=== PATIENT | female | born 1990 | race Caucasian/White ===

== ENCOUNTER 2019-03-12 17:10 | Inpatient (IN) | payer MEDICAID ==
[~2019-03-12] VITALS: Ht 175.3 cm; Wt 60.3 kg
[2019-03-12] MEDS ORDERED: TRAZODONE 50MG TABLET PO PRN (17:30)
[2019-03-12] MEDS ORDERED: BISACODYL 10 MG SUPP PR PRN (17:30)
[2019-03-12] MEDS: PLEASE ENTER HEIGHT AND WEIGHT MC SCH (19:00)
[2019-03-12 19:09] VITALS: BP 119/78
[2019-03-12 21:14] VITALS: BP 108/73
[2019-03-13] MEDS: PLEASE ENTER HEIGHT AND WEIGHT MC SCH ×2 (02:46→11:59)
[2019-03-13] MEDS ORDERED: FLU VACC QS2019-20 36MOS UP/PF 0.5 ML IM-VACC ONE (03:00)
[2019-03-13 06:23] LABS: BASOPHILS # (AUTO) 0.06 x10^3/uL (0-0.1); BASOPHILS % (AUTO) 1 % (0-1); EOSINOPHILS % (AUTO) 1 % (1-7); LYMPHOCYTES # (AUTO) 3.39 x10^3/uL (1-3.4); LYMPHOCYTES % (AUTO) 46 % (22-44); MD NO; MEAN CORPUSCULAR HEMOGLOBIN 30.1 pg (27.0-34.8); MEAN CORPUSCULAR HGB CONC 33.6 g/dL (32.4-35.8); MEAN CORPUSCULAR VOLUME 89.5 fL (80-100); MEAN PLATELET VOLUME 9.5 fL (7.4-10.4); MONOCYTES # (AUTO) 0.64 x10^3/uL (0.2-0.8); MONOCYTES % (AUTO) 9 % (2-9); NEUTROPHILS # (AUTO) 3.23 x10^3/uL (1.8-6.8); NEUTROPHILS % (AUTO) 44 % (42-75); PLATELET COUNT 222 x10^3/uL (130-400); RED BLOOD COUNT 4.43 x10^6/uL (3.82-5.3); RED CELL DISTRIBUTION WIDTH 12.4 % (9.6-15.2)
[2019-03-13 06:36] LABS: ALBUMIN 3.4 g/dL (3.4-5.0); ANION GAP 11 mmol/L (5-15); CALCIUM 8.4 mg/dL (8.5-10.1); CHLORIDE 105 mmol/L (98-107)
[2019-03-13 06:39] LABS: ALANINE AMINOTRANSFERASE 24 U/L (12-78); CHOLESTEROL, TOTAL 152 mg/dL (140-239); CREATININE 0.77 mg/dL (0.55-1.02); TRIGLYCERIDES 71 mg/dL (50-200); VLDL CHOLESTEROL 14 mg/dL (0-25)
[2019-03-13 07:00] LABS: ALKALINE PHOSPHATASE 62 U/L (45-117); BILIRUBIN,TOTAL 0.8 mg/dL (0.2-1.0); CHOL/HDL RATIO 3.2; FREE T4 (FREE THYROXINE) 1.26 ng/dL (0.76-1.46); HDL CHOL % 32 % (28-40); HDL CHOLESTEROL (DIRECT) 48 mg/dL (40-60); LDL CHOLESTEROL,CALCULATED 90 mg/dL (54-169); LDL/HDL RATIO 1.9 (0.5-3.0); TOTAL PROTEIN 6.6 g/dL (6.4-8.2)
[2019-03-13 07:22] VITALS: BP 116/73
[2019-03-13 07:42] LABS: HCT (SEDRATE) 39.6 % (34.6-47.8)
[2019-03-13] MEDS: CITALOPRAM 20 MG TABLET PO SCH (08:50)
[2019-03-13] MEDS: INSULIN LISPRO 100 UNITS/ML, PEN SQ-INSULIN SCH ×4 (08:52→20:11)
[2019-03-13] MEDS: ONDANSETRON ODT 4 MG PO PRN ×2 (11:47→16:58)
[2019-03-13 17:07] LABS: HEMOGLOBIN A1C 12.3 % (4.2-6.3)
[2019-03-13] MEDS ORDERED: ONDANSETRON 2MG/ML, 2ML IVPush PRN (17:30)
[2019-03-13] MEDS ORDERED: SODIUM CHLORIDE 0.9% 1,000ML IVBOLUS ONE ×2 (17:30→22:00)
[2019-03-13 17:58] LABS: ANION GAP 17 mmol/L (5-15); CALCIUM 9.5 mg/dL (8.5-10.1); CHLORIDE 103 mmol/L (98-107)
[2019-03-13] MEDS: SODIUM CHLORIDE 0.9% 1,000 ML IV SCH (18:28)
[2019-03-13 19:15] VITALS: BP 120/77
[2019-03-13] MEDS: INSULIN GLARGINE 100 UNITS/ML, PEN SQ-INSULIN SCH (20:26)
[2019-03-13] MEDS: CARBAMAZEPINE 200 MG TABLET PO SCH (20:27)
[2019-03-13] MEDS ORDERED: MAGNESIUM SULFATE 1 GM in SODIUM CHLORIDE 0.9% 50 ML IV ONE (21:30)
[2019-03-13] MEDS: TRAZODONE 50MG TABLET PO SCH (22:04)
[2019-03-13 22:11] VITALS: BP 94/51
[2019-03-13 22:16] LABS: MICROSCOPIC AUTO
[2019-03-13 22:21] LABS: CULTURE INDICATED? YES
[2019-03-14 00:18] LABS: ALBUMIN 3.2 g/dL (3.4-5.0); ANION GAP 11 mmol/L (5-15); CALCIUM 8.1 mg/dL (8.5-10.1); CHLORIDE 106 mmol/L (98-107); CREATININE 0.84 mg/dL (0.55-1.02)
[2019-03-14 04:51] LABS: BASOPHILS # (AUTO) 0.03 x10^3/uL (0-0.1); BASOPHILS % (AUTO) 0 % (0-1); EOSINOPHILS # (AUTO) 0.04 x10^3/uL (0-0.4); EOSINOPHILS % (AUTO) 0 % (1-7); LYMPHOCYTES # (AUTO) 4.01 x10^3/uL (1-3.4); LYMPHOCYTES % (AUTO) 35 % (22-44); MD NO; MEAN CORPUSCULAR HEMOGLOBIN 30.1 pg (27.0-34.8); MEAN CORPUSCULAR HGB CONC 33.2 g/dL (32.4-35.8); MEAN CORPUSCULAR VOLUME 90.9 fL (80-100); MEAN PLATELET VOLUME 9.4 fL (7.4-10.4); MONOCYTES # (AUTO) 0.83 x10^3/uL (0.2-0.8); MONOCYTES % (AUTO) 7 % (2-9); NEUTROPHILS # (AUTO) 6.57 x10^3/uL (1.8-6.8); NEUTROPHILS % (AUTO) 57 % (42-75); PLATELET COUNT 222 x10^3/uL (130-400); RED BLOOD COUNT 3.89 x10^6/uL (3.82-5.3); RED CELL DISTRIBUTION WIDTH 12.4 % (9.6-15.2)
[2019-03-14] MEDS: SODIUM CHLORIDE 0.9% 1,000 ML IV SCH ×3 (04:55→18:45)
[2019-03-14 05:05] LABS: ANION GAP 9 mmol/L (5-15); CALCIUM 7.7 mg/dL (8.5-10.1); CHLORIDE 108 mmol/L (98-107)
[2019-03-14 05:08] LABS: ALANINE AMINOTRANSFERASE 24 U/L (12-78); ALKALINE PHOSPHATASE 55 U/L (45-117); BILIRUBIN,TOTAL 0.9 mg/dL (0.2-1.0); CREATININE 0.72 mg/dL (0.55-1.02); TOTAL PROTEIN 5.7 g/dL (6.4-8.2)
[2019-03-14] MEDS: INSULIN LISPRO 100 UNITS/ML, PEN SQ-INSULIN SCH ×4 (07:00→20:34)
[2019-03-14 07:13] VITALS: BP 97/54
[2019-03-14] MEDS ORDERED: PANTOPRAZOLE 40 MG IV IVPush SCH (07:30)
[2019-03-14] MEDS: CITALOPRAM 20 MG TABLET PO SCH (09:02)
[2019-03-14 12:17] LABS: ANION GAP 9 mmol/L (5-15); CALCIUM 8.2 mg/dL (8.5-10.1); CHLORIDE 109 mmol/L (98-107)
[2019-03-14 19:45] VITALS: BP 99/60
[2019-03-14] MEDS: CARBAMAZEPINE 200 MG TABLET PO SCH (20:30)
[2019-03-14] MEDS: TRAZODONE 50MG TABLET PO SCH (20:30)
[2019-03-14] MEDS: INSULIN GLARGINE 100 UNITS/ML, PEN SQ-INSULIN SCH (20:34)
[2019-03-14] MEDS ORDERED: DEXTROSE 4 GM TAB.CHEW PO PRN (23:30)
[2019-03-14] MEDS ORDERED: GLUCAGON 1 MG IM PRN (23:30)
[2019-03-15] MEDS: SODIUM CHLORIDE 0.9% 1,000 ML IV SCH (01:52)
[2019-03-15] MEDS: PANTOPROZOLE 40MG TABLET PO SCH (06:09)
[2019-03-15 06:25] LABS: CULTURE INDICATED? YES; MICROSCOPIC AUTO
[2019-03-15 07:09] VITALS: BP 119/77
[2019-03-15] MEDS: INSULIN LISPRO 100 UNITS/ML, PEN SQ-INSULIN SCH ×5 (07:57→20:20)
[2019-03-15] MEDS ORDERED: ALUMINUM/MAG/SIMETHICONE 30 ML UDC ONE (08:11)
[2019-03-15] MEDS: ALUMINUM/MAG/SIMETHICONE 30 ML UDC PO PRN (08:19)
[2019-03-15] MEDS: ACETAMINOPHEN 325 MG TABLET PO PRN ×2 (08:51→12:58)
[2019-03-15] MEDS: CITALOPRAM 20 MG TABLET PO SCH (08:53)
[2019-03-15 09:09] LABS: ALANINE AMINOTRANSFERASE 29 U/L (12-78); ALBUMIN 3.5 g/dL (3.4-5.0); ANION GAP 6 mmol/L (5-15); CALCIUM 8.3 mg/dL (8.5-10.1); CHLORIDE 108 mmol/L (98-107); CREATININE 0.68 mg/dL (0.55-1.02)
[2019-03-15 09:11] LABS: ALKALINE PHOSPHATASE 63 U/L (45-117); BILIRUBIN,TOTAL 0.2 mg/dL (0.2-1.0); TOTAL PROTEIN 6.8 g/dL (6.4-8.2)
[2019-03-15] MEDS: ESCITALOPRAM 10MG TABLET PO SCH (15:20)
[2019-03-15] MEDS: IBUPROFEN 200 MG TABLET PO PRN ×2 (15:40→20:22)
[2019-03-15] MEDS ORDERED: SODIUM CHLORIDE 0.9% 1,000 ML IV SCH (19:00)
[2019-03-15 19:56] VITALS: BP 129/89
[2019-03-15] MEDS: INSULIN GLARGINE 100 UNITS/ML, PEN SQ-INSULIN SCH (20:05)
[2019-03-15] MEDS: CARBAMAZEPINE 200 MG TABLET PO SCH (20:06)
[2019-03-15] MEDS: TRAZODONE 50MG TABLET PO SCH (20:06)
[2019-03-16] MEDS: PANTOPROZOLE 40MG TABLET PO SCH (06:00)
[2019-03-16 07:46] VITALS: BP 132/88
[2019-03-16] MEDS: INSULIN LISPRO 100 UNITS/ML, PEN SQ-INSULIN SCH ×5 (08:05→21:00)
[2019-03-16] MEDS: IBUPROFEN 200 MG TABLET PO PRN ×3 (08:31→20:46)
[2019-03-16] MEDS: ESCITALOPRAM 10MG TABLET PO SCH (08:31)
[2019-03-16] MEDS ORDERED: ESCITALOPRAM 10MG TABLET PO SCH (09:00)
[2019-03-16] MEDS: POLYETHYLENE GLYCOL 17 GM PACKET PO PRN (10:10)
[2019-03-16] MEDS: ACETAMINOPHEN 325 MG TABLET PO PRN ×2 (12:43→17:52)
[2019-03-16] MEDS: ONDANSETRON ODT 4 MG PO PRN (17:59)
[2019-03-16] MEDS: DOCUSATE 100 MG CAPSULE PO PRN (18:02)
[2019-03-16] MEDS: ALUMINUM/MAG/SIMETHICONE 30 ML UDC PO PRN (18:42)
[2019-03-16 19:15] VITALS: BP 145/92
[2019-03-16] MEDS: CARBAMAZEPINE 200 MG TABLET PO SCH (20:46)
[2019-03-16] MEDS: TRAZODONE 50MG TABLET PO SCH (20:48)
[2019-03-16] MEDS: INSULIN GLARGINE 100 UNITS/ML, PEN SQ-INSULIN SCH (20:51)
[2019-03-17] MEDS: PANTOPROZOLE 40MG TABLET PO SCH (05:21)
[2019-03-17 07:25] VITALS: BP 131/81
[2019-03-17] MEDS: ESCITALOPRAM 10MG TABLET PO SCH (08:23)
[2019-03-17] MEDS: INSULIN LISPRO 100 UNITS/ML, PEN SQ-INSULIN SCH ×5 (08:29→20:18)
[2019-03-17] MEDS: POLYETHYLENE GLYCOL 17 GM PACKET PO PRN (08:30)
[2019-03-17] MEDS: ONDANSETRON ODT 4 MG PO PRN (08:31)
[2019-03-17] MEDS: DOCUSATE 100 MG CAPSULE PO PRN ×2 (08:31→20:55)
[2019-03-17] MEDS: ACETAMINOPHEN 325 MG TABLET PO PRN ×2 (10:30→20:16)
[2019-03-17] MEDS: IBUPROFEN 200 MG TABLET PO PRN (16:26)
[2019-03-17 19:34] VITALS: BP 143/91
[2019-03-17] MEDS: CARBAMAZEPINE 200 MG TABLET PO SCH (20:16)
[2019-03-17] MEDS: TRAZODONE 50MG TABLET PO SCH (20:16)
[2019-03-17] MEDS: INSULIN GLARGINE 100 UNITS/ML, PEN SQ-INSULIN SCH (20:18)
[2019-03-18] MEDS: PANTOPROZOLE 40MG TABLET PO SCH (06:07)
[2019-03-18 07:11] VITALS: BP 120/78
[2019-03-18] MEDS: ESCITALOPRAM 10MG TABLET PO SCH (09:02)
[2019-03-18] MEDS: IBUPROFEN 200 MG TABLET PO PRN ×3 (09:02→20:26)
[2019-03-18] MEDS: INSULIN LISPRO 100 UNITS/ML, PEN SQ-INSULIN SCH ×7 (09:09→22:20)
[2019-03-18] MEDS: ALUMINUM/MAG/SIMETHICONE 30 ML UDC PO PRN (16:54)
[2019-03-18] MEDS: ONDANSETRON ODT 4 MG PO PRN (18:34)
[2019-03-18 19:42] VITALS: BP 141/92
[2019-03-18] MEDS: TRAZODONE 50MG TABLET PO SCH (20:21)
[2019-03-18] MEDS: CARBAMAZEPINE 200 MG TABLET PO SCH (20:21)
[2019-03-18] MEDS: INSULIN GLARGINE 100 UNITS/ML, PEN SQ-INSULIN SCH (22:21)
[2019-03-19] MEDS: PANTOPROZOLE 40MG TABLET PO SCH (05:56)
[2019-03-19] MEDS: INSULIN LISPRO 100 UNITS/ML, PEN SQ-INSULIN SCH ×3 (06:12→10:31)
[2019-03-19 07:20] VITALS: BP 96/60
[2019-03-19] MEDS: ONDANSETRON ODT 4 MG PO PRN (08:51)
[2019-03-19] MEDS: IBUPROFEN 200 MG TABLET PO PRN (08:51)
[2019-03-19] MEDS ORDERED: ESCITALOPRAM 10MG TABLET PO SCH (09:00)
[2019-03-19] MEDS ORDERED: INSULIN GLARGINE 100 UNITS/ML, PEN SQ-INSULIN SCH ×3 (12:30→21:00)
[2019-03-19] MEDS ORDERED: INSULIN LISPRO 100 UNITS/ML, PEN SQ-INSULIN SCH (13:00)
[2019-03-19 15:41] VITALS: BP 123/81
[2019-03-19] MEDS ORDERED: ESCI10TA PO (15:53)
[2019-03-19] MEDS ORDERED: INSU100I13 SQ-INSULIN ×2 (15:53)
[2019-03-19] MEDS ORDERED: PANT40TA5 PO (15:53)
[2019-03-19] MEDS ORDERED: TRAZ50TA66 PO (15:53)
[2019-03-19] MEDS ORDERED: HYDR-826 PO (15:53)
[2019-03-19 15:55] VITALS: BP 127/87
[2019-03-19] MEDS ORDERED: GUAIFENESIN/DM 200-20MG, 10ML UDC PO PRN (16:00)
[2019-03-19] MEDS ORDERED: ONDANSETRON ODT 4 MG PO PRN (16:00)
[2019-03-19] MEDS ORDERED: ONDANSETRON 2MG/ML, 2ML IVPush PRN (16:00)
[2019-03-19] MEDS ORDERED: ACETAMINOPHEN 325 MG TABLET PO PRN (16:00)
[2019-03-19] MEDS ORDERED: POLYETHYLENE GLYCOL 17 GM PACKET PO PRN (16:00)
[2019-03-19] MEDS ORDERED: BUTALB/APAP/CAFFEINE 50MG/325MG/40MG PO PRN (16:00)
[2019-03-19] MEDS ORDERED: IBUPROFEN 600 MG TABLET PO PRN (16:00)
[2019-03-19] MEDS ORDERED: NICOTINE 21 MG/24 HR PATCH.TD24 TD SCH (16:00)
[2019-03-19] MEDS ORDERED: hydrALAzine 20 MG/ML, 1ML IVPush PRN (16:00)
[2019-03-19] MEDS ORDERED: TRAZODONE 50MG TABLET PO PRN (16:00)
[2019-03-19 16:12] VITALS: BP 119/75
[2019-03-19] MEDS ORDERED: ENOXAPARIN 30 MG/0.3 ML SQ SCH (16:30)
[2019-03-21] MEDS ORDERED: INSU100I13 SQ-INSULIN (12:18)
[2019-03-21] MEDS ORDERED: CARB200T PO (13:17)
== END 2019-03-19 17:00 | disposition home or self-care (01) | DRG 751 ==
LOC: 3E 18:20
PROVIDERS: ADMIT Psychiatry & Neurology Psychosomatic Medicine; ATTEND Psychiatry & Neurology Psychosomatic Medicine
DX: F33.2 Major depressive disorder, recurrent severe without psychotic features (principal); E11.10 Type 2 diabetes mellitus with ketoacidosis without coma; K31.84 Gastroparesis; E11.43 Type 2 diabetes mellitus with diabetic autonomic (poly)neuropathy; F12.10 Cannabis abuse, uncomplicated; F17.200 Nicotine dependence, unspecified, uncomplicated; F41.1 Generalized anxiety disorder; K21.9 Gastro-esophageal reflux disease without esophagitis; G47.00 Insomnia, unspecified; R45.851 Suicidal ideations; Z79.4 Long term (current) use of insulin; Z79.899 Other long term (current) drug therapy
CPT/HCPCS: 36415; 36600; 71045; 80048; 80053; 80061; 81001; 82040; 82140; 82607; 82803; 82947; 82962; 83036; 83690; 83735; 84439; 84443; 84702; 85025; 85651; 87086; 90686; 93005; J3475; Q0162; C9113; J1815; J7030; Q0177